=== PATIENT | male | born 1945 | race Caucasian/White ===

== ENCOUNTER 2017-02-21 17:23 | Emergency (ER) | payer MEDICARE, BC ==
[2017-02-21 18:05] VITALS: BP 102/42
--- NOTE | 2017-02-21 18:10 | UC ---
Complaint Male HPI - HPI Summary HPI Summary: Dysuria, frequency, urgency, felt feverish today. Pt has had UTI with sepsis in the past. Denies faintness. - History of Current Complaint Chief Complaint: UCGU Stated Complaint: URINARY Time Seen by Provider: 02/21/17 17:39 Hx Obtained From: Patient Onset/Duration: Gradual Onset, Lasting Hours Timing: Constant Severity Initially: Moderate Severity Currently: Moderate Location: Suprapubic Character: Burning Aggravating Factor(s): Voiding Associated Signs And Symptoms: Positive: Dysuria. Negative: Fever, Nausea, Vomiting(# Of Episodes =) - Allergies/Home Medications Allergies/Adverse Reactions: Allergies Allergy/AdvReac Type Severity Reaction Status Date / Time Carvedilol [From Coreg] Allergy Dizziness Verified 02/21/17 17:36 Meperidine [From Demerol HCl] Allergy Hives Verified 02/21/17 17:36 Home Medications: Home Medications Metoprolol Succinate [Toprol Xl] 25 mg PO 02/21/17 [History] Tamsulosin CAP* [Flomax CAP*] 0.4 mg PO DAILY 02/21/17 [History Confirmed ] PMH/Surg Hx/FS Hx/Imm Hx Endocrine History: Diabetes, Thyroid Disease Cardiovascular History: Pacemaker/ICD, Myocardial Infarction - Surgical History Surgical History: Yes Surgery Procedure, Year, and Place: L TKA. triple bipass. R hand. defib - Family History Known Family History: Positive: Hypertension - SISTER, Diabetes - SISTER - Social History Alcohol Use: Rare Substance Use Type: None Smoking Status (MU): Former Smoker When Did the Patient Quit Smoking/Using Tobacco: 1992 Review of Systems Constitutional: Negative Skin: Negative Eyes: Negative ENT: Negative Respiratory: Negative Cardiovascular: Negative Gastrointestinal: Negative Genitourinary: Dysuria, Frequency, Urgency Motor: Negative Neurovascular: Negative Musculoskeletal: Negative Neurological: Negative Psychological: Negative All Other Systems Reviewed And Are Negative: Yes Physical Exam Triage Information Reviewed: Yes Appearance: Well-Appearing, Obese Vital Signs: Initial Vital Signs Temp 99.1 F 02/21/17 17:37 Pulse 84 02/21/17 17:37 Resp 24 02/21/17 17:37 BP 102/42 02/21/17 17:37 Vital Signs Reviewed: Yes Eye Exam: Normal Eyes: Positive: Conjunctiva Clear ENT Exam: Normal ENT: Positive: Normal ENT inspection, Hearing grossly normal, Pharynx normal, TMs normal Dental Exam: Normal Neck exam: Normal Neck: Positive: Supple, Nontender, No Lymphadenopathy Respiratory Exam: Normal Respiratory: Positive: Chest non-tender, Lungs clear, Normal breath sounds, No respiratory distress, No accessory muscle use Cardiovascular Exam: Normal Cardiovascular: Positive: RRR, No Murmur Abdomen Description: Positive: Soft. Negative: CVA Tenderness (R), CVA Tenderness (L) Musculoskeletal Exam: Normal Neurological Exam: Normal Neurological: Positive: Alert Psychological Exam: Normal Skin Exam: Normal Complaint Male Course/Dx - Differential Dx/Diagnosis Provider Diagnoses: UTI Discharge - Discharge Plan Condition: Stable Disposition: HOME Prescriptions: Ciprofloxacin TAB* [Cipro 500 MG TAB*] 500 mg PO BID #14 tab Patient Education Materials: Urinary Tract Infection in Men (ED) Referrals: Augustine BARRIOS,Epifanio Vera [Primary Care Provider] - Additional Instructions: Please go to the hospital if you develop fevers, fainting, or otherwise worsen.
== END 2017-02-21 18:10 | disposition home or self-care (01) ==
LOC: UCCORT 17:23
DX: N39.0 Urinary tract infection, site not specified (principal); Z87.440 Personal history of urinary (tract) infections; E11.9 Type 2 diabetes mellitus without complications; E07.9 Disorder of thyroid, unspecified; I25.2 Old myocardial infarction; Z95.1 Presence of aortocoronary bypass graft; Z95.0 Presence of cardiac pacemaker; E66.9 Obesity, unspecified; Z87.891 Personal history of nicotine dependence
CPT/HCPCS: 81003; 87077; 87086; 87186; 99211; G0463